=== PATIENT | female | born 1995 | race Caucasian/White ===

== ENCOUNTER 2018-07-18 14:40 | Outpatient (CLI) | payer BC ==
--- NOTE | 2018-07-18 18:08 | RAD ---
RADIOGRAPH CHEST 2 VIEWS: HISTORY: Tuberculosis exposure. FINDINGS: There is no evidence of air space density, cavitation, pleural effusion, or mass. IMPRESSION: No evidence of active tuberculosis. so[facility] POS: [facility]
== END 2018-07-18 14:41 | disposition home or self-care (01) ==
LOC: SCSRAD 14:40
PROVIDERS: ATTEND Family Medicine
DX: R76.11 Nonspecific reaction to tuberculin skin test without active tuberculosis (principal)
CPT/HCPCS: 71046